=== PATIENT | female | born 1940 | race Caucasian/White ===

== ENCOUNTER 2021-11-21 02:21 | Emergency (ER) | payer OTHER ==
[~2021-11-21] VITALS: Ht 157.5 cm; Wt 61.2 kg
[2021-11-21 02:29] VITALS: BP_SYST 116
[2021-11-21] MEDS ORDERED: ACETAMINOPHEN 500 MG TABLET PO ONE (03:30)
[2021-11-21 08:57] VITALS: BP_SYST 128
== END 2021-11-21 08:57 | disposition home or self-care (01) ==
LOC: SED 02:21
DX: S09.90XA Unspecified injury of head, initial encounter (principal); R51.9 Headache, unspecified; M54.50 Low back pain, unspecified; W06.XXXA Fall from bed, initial encounter; Y93.89 Activity, other specified; Y92.89 Other specified places as the place of occurrence of the external cause; Y99.8 Other external cause status
CPT/HCPCS: 70450-TC; 76376; 99285

== ENCOUNTER 2022-07-13 12:58 | Inpatient (IN) | payer OTHER ==
[~2022-07-13] VITALS: Ht 170.2 cm; Wt 57.0 kg
[2022-07-13 13:00] VITALS: BP_SYST 156
[2022-07-13 13:26] LABS: BASOPHILS % (AUTO) 0.5 % (0.0-2.0); EOSINOPHILS # (AUTO) 0.1 K/uL (0.0-0.4); EOSINOPHILS % (AUTO) 1.3 % (0.0-4.0); HEMATOCRIT 37.9 % (36-48); HEMOGLOBIN 12.4 g/dL (12.0-16.0); LYMPHOCYTES % (AUTO) 27.5 % (20.5-51.5); MEAN CORPUSCULAR HEMOGLOBIN 30 pg (27-31); MEAN CORPUSCULAR HGB CONC 33 % (32-36); MEAN CORPUSCULAR VOLUME 91 fL (79.0-98.0); MONOCYTES # (AUTO) 0.5 K/uL (0.0-1.0); MONOCYTES % (AUTO) 7.2 % (1.7-9.3); NEUTROPHILS # (AUTO) 4.7 K/uL (1.8-7.7); NEUTROPHILS % (AUTO) 63.5 % (40.0-70.0); PLATELET COUNT (AUTO) 173 K/uL (130-430); RED BLOOD CELL COUNT(AUTO) 4.15 MIL/uL (4.2-6.2); RED CELL DISTRIBUTION WIDTH 14.2 % (9.0-15.0); WHITE BLOOD COUNT (AUTO) 7.5 K/uL (4.8-10.8)
[2022-07-13 13:48] LABS: ANION GAP 8 (5-15); CALCIUM 9.2 mg/dL (8.4-11.0); CHLORIDE 105 mmol/L (98-107); CREATININE 0.79 mg/dL (0.55-1.30); GLUCOSE 117 mg/dL (70-99); UREA NITROGEN, BLOOD 14 mg/dL (8-21)
[2022-07-13 13:53] LABS: ALANINE AMINOTRANSFERASE 16 U/L (12-78); ALBUMIN 3.5 g/dL (3.4-4.8); ASPARTATE AMINOTRANSFERASE 30 U/L (10-37); TOTAL BILIRUBIN 0.2 mg/dL (0.0-1.0)
[2022-07-13] MEDS ORDERED: PRED20TA PO (15:31)
[2022-07-13] MEDS ORDERED: ALBMDI INH (15:31)
[2022-07-13] MEDS ORDERED: MORPHINE 4 MG INJ. 4 MG/ML VIAL IM ONE (16:15)
[2022-07-13] MEDS ORDERED: RESEYE OT (18:37)
[2022-07-13] MEDS ORDERED: DONE10TA44 PO (18:37)
[2022-07-13] MEDS ORDERED: ALPR0.255 PO (18:37)
[2022-07-13] MEDS ORDERED: SERT25TA77 PO (18:37)
[2022-07-13] MEDS ORDERED: MEMA10TA56 PO (18:37)
[2022-07-13] MEDS ORDERED: FAMO20TA8 PO (18:37)
[2022-07-13] MEDS ORDERED: TRAZ-250 PO (18:37)
[2022-07-13] MEDS ORDERED: LEVO5TAB13 PO (18:37)
[2022-07-13] MEDS ORDERED: BENZ1LOZ73 (18:44)
[2022-07-13] MEDS ORDERED: [UNRECOGNIZED DRUG - CODE] (18:44)
[2022-07-13] MEDS ORDERED: AMLO5TAB4 PO (19:11)
[2022-07-13 23:00] VITALS: BP_SYST 147
[2022-07-14] VITALS (7 sets, daily range): BP systolic 137–157
[2022-07-14] MEDS ORDERED: ACETAMINOPHEN 325 MG TABLET PO PRN (04:30)
[2022-07-14] MEDS ORDERED: ONDANSETRON HCL 4 MG/2 ML VIAL IVP PRN (04:30)
[2022-07-14] MEDS ORDERED: NALOXONE HCL 0.4 MG/ML AMP (NARCAN) IVP PRN ×2 (04:30)
[2022-07-14] MEDS ORDERED: ALBUTEROL SULFATE 0.083% 2.5 MG/3 ML VIAL.NEB INH PRN (04:30)
[2022-07-14] MEDS ORDERED: ALPRAZolam 0.25 MG TABLET PO PRN (04:30)
[2022-07-14] MEDS ORDERED: HYDROcodone/ACETAMIN 5-325 MG TAB (NORCO/ VICODIN) PO PRN (04:30)
[2022-07-14 05:23] LABS: BASOPHILS % (AUTO) 0.2 % (0.0-2.0); EOSINOPHILS % (AUTO) 0.1 % (0.0-4.0); HEMATOCRIT 35.3 % (36-48); HEMOGLOBIN 11.7 g/dL (12.0-16.0); LYMPHOCYTES # (AUTO) 1.5 K/uL (1.0-5.5); MEAN CORPUSCULAR HEMOGLOBIN 30 pg (27-31); MEAN CORPUSCULAR HGB CONC 33 % (32-36); MEAN CORPUSCULAR VOLUME 90 fL (79.0-98.0); MONOCYTES # (AUTO) 1.1 K/uL (0.0-1.0); MONOCYTES % (AUTO) 9.6 % (1.7-9.3); NEUTROPHILS # (AUTO) 8.7 K/uL (1.8-7.7); NEUTROPHILS % (AUTO) 77.1 % (40.0-70.0); PLATELET COUNT (AUTO) 175 K/uL (130-430); RED BLOOD CELL COUNT(AUTO) 3.91 MIL/uL (4.2-6.2); RED CELL DISTRIBUTION WIDTH 13.7 % (9.0-15.0); WHITE BLOOD COUNT (AUTO) 11.3 K/uL (4.8-10.8)
[2022-07-14 05:34] LABS: ANION GAP 7 (5-15); CALCIUM 8.9 mg/dL (8.4-11.0); CHLORIDE 105 mmol/L (98-107); CREATININE 0.58 mg/dL (0.55-1.30); GLUCOSE 112 mg/dL (70-99); UREA NITROGEN, BLOOD 12 mg/dL (8-21)
[2022-07-14] MEDS: NORMAL SALINE 5 ML DISP.SYRIN IVF SCH ×3 (06:13→22:00)
[2022-07-14] MEDS ORDERED: LORATADINE 10 MG TABLET PO PRN (09:00)
[2022-07-14] MEDS: MEMANTINE HCL 5 MG TABLET PO SCH ×2 (10:16→21:03)
[2022-07-14] MEDS: DONEPEZIL HCL 5 MG TABLET (ARICEPT) PO SCH (10:16)
[2022-07-14] MEDS: SERTRALINE HCL 50 MG TABLET PO SCH (10:16)
[2022-07-14] MEDS: FAMOTIDINE 20 MG TABLET PO SCH (10:16)
[2022-07-14] MEDS: amLODIPine BESYLATE 5 MG TABLET PO SCH (10:18)
[2022-07-14] MEDS: cycloSPORINE 0.05%, 0.4 ML OPHTHALMIC EMULSION DROPERETTE OP SCH ×2 (10:28→21:00)
[2022-07-14] MEDS: HYDROcodone/ACETAMIN 10-325 MG TAB PO PRN (16:24)
[2022-07-14] MEDS: traZODone HCL 50 MG TABLET (DESYREL) PO SCH (21:03)
[2022-07-15] VITALS: BP_SYST 161
[2022-07-15] MEDS ORDERED: LISINOPRIL 10 MG TABLET (PRINIVIL) PO ONE (01:30)
[2022-07-15] MEDS: KETOROLAC TROMETHAMINE 15 MG VIAL IVP SCH ×4 (02:07→18:00)
[2022-07-15 06:30] VITALS: BP_SYST 144
[2022-07-15] MEDS: NORMAL SALINE 5 ML DISP.SYRIN IVF SCH ×3 (06:40→22:12)
[2022-07-15 08:00] VITALS: BP_SYST 124
[2022-07-15] MEDS: SERTRALINE HCL 50 MG TABLET PO SCH (08:47)
[2022-07-15] MEDS: CHOLECALCIFEROL (VITAMIN D3) 5,000 UNIT TABLET PO SCH (08:48)
[2022-07-15] MEDS: FAMOTIDINE 20 MG TABLET PO SCH (08:48)
[2022-07-15] MEDS: amLODIPine BESYLATE 5 MG TABLET PO SCH (08:48)
[2022-07-15] MEDS: MEMANTINE HCL 5 MG TABLET PO SCH ×2 (08:48→22:11)
[2022-07-15] MEDS: DONEPEZIL HCL 5 MG TABLET (ARICEPT) PO SCH (08:48)
[2022-07-15] MEDS: cycloSPORINE 0.05%, 0.4 ML OPHTHALMIC EMULSION DROPERETTE OP SCH ×2 (10:10→21:00)
[2022-07-15 12:00] VITALS: BP_SYST 116
[2022-07-15] MEDS: HYDROcodone/ACETAMIN 10-325 MG TAB PO PRN (15:27)
[2022-07-15 16:00] VITALS: BP_SYST 120
[2022-07-15 20:00] VITALS: BP_SYST 125
[2022-07-15] MEDS: LISINOPRIL 10 MG TABLET (PRINIVIL) PO SCH (22:11)
[2022-07-15] MEDS: traZODone HCL 50 MG TABLET (DESYREL) PO SCH (22:11)
[2022-07-16] VITALS: BP_SYST 136
[2022-07-16] MEDS: KETOROLAC TROMETHAMINE 15 MG VIAL IVP SCH ×4 (00:55→21:00)
[2022-07-16 05:36] LABS: BASOPHILS % (AUTO) 0.2 % (0.0-2.0); EOSINOPHILS # (AUTO) 0.2 K/uL (0.0-0.4); EOSINOPHILS % (AUTO) 2.4 % (0.0-4.0); HEMATOCRIT 32.7 % (36-48); HEMOGLOBIN 11.1 g/dL (12.0-16.0); LYMPHOCYTES # (AUTO) 2.1 K/uL (1.0-5.5); LYMPHOCYTES % (AUTO) 23.4 % (20.5-51.5); MEAN CORPUSCULAR HEMOGLOBIN 30 pg (27-31); MEAN CORPUSCULAR HGB CONC 34 % (32-36); MEAN CORPUSCULAR VOLUME 90 fL (79.0-98.0); MONOCYTES % (AUTO) 10.6 % (1.7-9.3); NEUTROPHILS # (AUTO) 5.8 K/uL (1.8-7.7); NEUTROPHILS % (AUTO) 63.4 % (40.0-70.0); PLATELET COUNT (AUTO) 161 K/uL (130-430); RED BLOOD CELL COUNT(AUTO) 3.64 MIL/uL (4.2-6.2); RED CELL DISTRIBUTION WIDTH 13.6 % (9.0-15.0); WHITE BLOOD COUNT (AUTO) 9.1 K/uL (4.8-10.8)
[2022-07-16 05:59] LABS: ALANINE AMINOTRANSFERASE 22 U/L (12-78); ALBUMIN 2.9 g/dL (3.4-4.8); ANION GAP 8 (5-15); ASPARTATE AMINOTRANSFERASE 39 U/L (10-37); C-REACTIVE PROTEIN QUANT 8.4 mg/dL (0-0.5); CALCIUM 8.6 mg/dL (8.4-11.0); CHLORIDE 103 mmol/L (98-107); CREATININE 0.83 mg/dL (0.55-1.30); GLUCOSE 89 mg/dL (70-99); TOTAL BILIRUBIN 0.5 mg/dL (0.0-1.0); UREA NITROGEN, BLOOD 27 mg/dL (8-21)
[2022-07-16 06:55] LABS: ERYTHROCYTE SEDIMENTATION RATE 23 MM/HR (0-20)
[2022-07-16] MEDS: NORMAL SALINE 5 ML DISP.SYRIN IVF SCH ×3 (07:18→21:45)
[2022-07-16 08:08] VITALS: BP_SYST 132
[2022-07-16] MEDS: FAMOTIDINE 20 MG TABLET PO SCH (09:33)
[2022-07-16] MEDS: DONEPEZIL HCL 5 MG TABLET (ARICEPT) PO SCH (09:34)
[2022-07-16] MEDS: MEMANTINE HCL 5 MG TABLET PO SCH ×2 (09:34→21:42)
[2022-07-16] MEDS: CHOLECALCIFEROL (VITAMIN D3) 5,000 UNIT TABLET PO SCH (09:34)
[2022-07-16] MEDS: amLODIPine BESYLATE 5 MG TABLET PO SCH (09:35)
[2022-07-16] MEDS: cycloSPORINE 0.05%, 0.4 ML OPHTHALMIC EMULSION DROPERETTE OP SCH ×2 (09:36→21:42)
[2022-07-16] MEDS: SERTRALINE HCL 50 MG TABLET PO SCH (09:55)
[2022-07-16 11:04] VITALS: BP_SYST 101
[2022-07-16 17:08] VITALS: BP_SYST 110
[2022-07-16] MEDS: LISINOPRIL 10 MG TABLET (PRINIVIL) PO SCH (21:41)
[2022-07-16] MEDS: traZODone HCL 50 MG TABLET (DESYREL) PO SCH (21:45)
[2022-07-17] MEDS: KETOROLAC TROMETHAMINE 15 MG VIAL IVP SCH ×4 (00:24→17:54)
[2022-07-17 00:49] VITALS: BP_SYST 119
[2022-07-17 00:52] VITALS: BP_SYST 158
[2022-07-17] MEDS: NORMAL SALINE 5 ML DISP.SYRIN IVF SCH ×3 (05:15→21:08)
[2022-07-17 06:24] LABS: BASOPHILS % (AUTO) 0.2 % (0.0-2.0); EOSINOPHILS # (AUTO) 0.2 K/uL (0.0-0.4); EOSINOPHILS % (AUTO) 2.1 % (0.0-4.0); HEMATOCRIT 34.5 % (36-48); HEMOGLOBIN 11.7 g/dL (12.0-16.0); LYMPHOCYTES # (AUTO) 1.5 K/uL (1.0-5.5); LYMPHOCYTES % (AUTO) 18.5 % (20.5-51.5); MEAN CORPUSCULAR HEMOGLOBIN 31 pg (27-31); MEAN CORPUSCULAR HGB CONC 34 % (32-36); MEAN CORPUSCULAR VOLUME 90 fL (79.0-98.0); MONOCYTES # (AUTO) 0.9 K/uL (0.0-1.0); MONOCYTES % (AUTO) 10.8 % (1.7-9.3); NEUTROPHILS # (AUTO) 5.5 K/uL (1.8-7.7); NEUTROPHILS % (AUTO) 68.4 % (40.0-70.0); PLATELET COUNT (AUTO) 187 K/uL (130-430); RED BLOOD CELL COUNT(AUTO) 3.85 MIL/uL (4.2-6.2); RED CELL DISTRIBUTION WIDTH 13.2 % (9.0-15.0)
[2022-07-17 06:27] VITALS: BP_SYST 145
[2022-07-17 06:50] LABS: ANION GAP 7 (5-15); CALCIUM 8.8 mg/dL (8.4-11.0); CHLORIDE 105 mmol/L (98-107); CREATININE 0.67 mg/dL (0.55-1.30); GLUCOSE 94 mg/dL (70-99); UREA NITROGEN, BLOOD 30 mg/dL (8-21)
[2022-07-17] MEDS: CHOLECALCIFEROL (VITAMIN D3) 5,000 UNIT TABLET PO SCH (09:26)
[2022-07-17] MEDS: FAMOTIDINE 20 MG TABLET PO SCH (09:26)
[2022-07-17] MEDS: amLODIPine BESYLATE 5 MG TABLET PO SCH (09:27)
[2022-07-17] MEDS: DONEPEZIL HCL 5 MG TABLET (ARICEPT) PO SCH (09:27)
[2022-07-17] MEDS: HYDROcodone/ACETAMIN 10-325 MG TAB PO PRN (09:29)
[2022-07-17] MEDS: SERTRALINE HCL 50 MG TABLET PO SCH (09:30)
[2022-07-17] MEDS: MEMANTINE HCL 5 MG TABLET PO SCH ×2 (09:42→21:07)
[2022-07-17] MEDS: cycloSPORINE 0.05%, 0.4 ML OPHTHALMIC EMULSION DROPERETTE OP SCH ×2 (09:42→21:08)
[2022-07-17 10:09] VITALS: BP_SYST 130
[2022-07-17 17:57] VITALS: BP_SYST 147
[2022-07-17 17:59] VITALS: BP_SYST 128
[2022-07-17] MEDS: LISINOPRIL 10 MG TABLET (PRINIVIL) PO SCH (21:08)
[2022-07-17] MEDS: traZODone HCL 50 MG TABLET (DESYREL) PO SCH (21:08)
[2022-07-18] VITALS: BP_SYST 141
[2022-07-18] MEDS: KETOROLAC TROMETHAMINE 15 MG VIAL IVP SCH ×3 (00:06→11:52)
[2022-07-18 00:29] VITALS: BP_SYST 142
[2022-07-18 05:26] VITALS: BP_SYST 146
[2022-07-18] MEDS: NORMAL SALINE 5 ML DISP.SYRIN IVF SCH ×2 (05:41→14:00)
[2022-07-18 06:36] LABS: BASOPHILS % (AUTO) 0.3 % (0.0-2.0); EOSINOPHILS # (AUTO) 0.2 K/uL (0.0-0.4); EOSINOPHILS % (AUTO) 2.7 % (0.0-4.0); HEMATOCRIT 32.7 % (36-48); HEMOGLOBIN 11.3 g/dL (12.0-16.0); LYMPHOCYTES # (AUTO) 1.6 K/uL (1.0-5.5); LYMPHOCYTES % (AUTO) 20.8 % (20.5-51.5); MEAN CORPUSCULAR HEMOGLOBIN 31 pg (27-31); MEAN CORPUSCULAR HGB CONC 35 % (32-36); MEAN CORPUSCULAR VOLUME 89 fL (79.0-98.0); MONOCYTES # (AUTO) 0.9 K/uL (0.0-1.0); MONOCYTES % (AUTO) 11.3 % (1.7-9.3); NEUTROPHILS # (AUTO) 5.1 K/uL (1.8-7.7); NEUTROPHILS % (AUTO) 64.9 % (40.0-70.0); PLATELET COUNT (AUTO) 197 K/uL (130-430); RED BLOOD CELL COUNT(AUTO) 3.66 MIL/uL (4.2-6.2); RED CELL DISTRIBUTION WIDTH 13.5 % (9.0-15.0); WHITE BLOOD COUNT (AUTO) 7.8 K/uL (4.8-10.8)
[2022-07-18 07:15] LABS: ANION GAP 8 (5-15); CALCIUM 8.8 mg/dL (8.4-11.0); CHLORIDE 106 mmol/L (98-107); CREATININE 0.68 mg/dL (0.55-1.30); GLUCOSE 91 mg/dL (70-99); UREA NITROGEN, BLOOD 35 mg/dL (8-21)
[2022-07-18 08:09] VITALS: BP_SYST 121
[2022-07-18] MEDS: SERTRALINE HCL 50 MG TABLET PO SCH (09:09)
[2022-07-18] MEDS: MEMANTINE HCL 5 MG TABLET PO SCH (09:09)
[2022-07-18] MEDS: HYDROcodone/ACETAMIN 10-325 MG TAB PO PRN (09:10)
[2022-07-18] MEDS: CHOLECALCIFEROL (VITAMIN D3) 5,000 UNIT TABLET PO SCH (09:11)
[2022-07-18] MEDS: DONEPEZIL HCL 5 MG TABLET (ARICEPT) PO SCH (09:11)
[2022-07-18] MEDS: FAMOTIDINE 20 MG TABLET PO SCH (09:11)
[2022-07-18] MEDS: amLODIPine BESYLATE 5 MG TABLET PO SCH (09:11)
[2022-07-18] MEDS: cycloSPORINE 0.05%, 0.4 ML OPHTHALMIC EMULSION DROPERETTE OP SCH (09:19)
[2022-07-18 11:02] VITALS: BP_SYST 119
[2022-07-18 11:51] VITALS: BP_SYST 119
[2022-07-18] MEDS ORDERED: CHOL500013 PO (12:10)
[2022-07-18] MEDS ORDERED: HYDR-3919 PO (12:10)
[2022-07-18] MEDS ORDERED: HYDR-3927 PO (12:10)
[2022-07-18] MEDS ORDERED: ACET325T PO (12:10)
[2022-07-18] MEDS ORDERED: LISI10TA29 PO (12:10)
== END 2022-07-18 14:12 | DRG 563 ==
LOC: SED 12:58 → SMU 17:17
PROVIDERS: ADMIT Preventive Medicine Preventive Medicine/Occupational Environmental Medicine; ATTEND Preventive Medicine Preventive Medicine/Occupational Environmental Medicine
DX: S42.202A Unspecified fracture of upper end of left humerus, initial encounter for closed fracture (principal); S42.201A Unspecified fracture of upper end of right humerus, initial encounter for closed fracture; E44.0 Moderate protein-calorie malnutrition; Z68.1 Body mass index [BMI] 19.9 or less, adult; G47.00 Insomnia, unspecified; K21.9 Gastro-esophageal reflux disease without esophagitis; I10 Essential (primary) hypertension; D64.9 Anemia, unspecified; E88.09 Other disorders of plasma-protein metabolism, not elsewhere classified; Z20.822 Contact with and (suspected) exposure to COVID-19; F03.90 Unspecified dementia, unspecified severity, without behavioral disturbance, psychotic disturbance, mood disturbance, and anxiety; R73.9 Hyperglycemia, unspecified; W06.XXXA Fall from bed, initial encounter; D72.829 Elevated white blood cell count, unspecified; Z88.2 Allergy status to sulfonamides; Z79.899 Other long term (current) drug therapy; Y93.89 Activity, other specified; Y92.89 Other specified places as the place of occurrence of the external cause; Y99.8 Other external cause status
CPT/HCPCS: 36415; 70160-TC; 71045; 72040-TC; 73200-TC; 76376; 80048; 80053; 85025; 85651-TC; 86140; 94760; 96372; 97116-GP; 97530-GP; 99285; J1885; J2270